=== PATIENT | female | born 1965 | race Caucasian/White ===

== ENCOUNTER 2024-03-12 02:15 | Emergency (ER) | payer MEDICARE, MEDICAID, SELFPAY ==
[2024-03-12 02:16] VITALS: BP 167/73; PULSE 72; RESP 18; TEMP 36.8; O2SAT 94; BMI 30.4
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
[2024-03-12 02:56] LABS: Absolute Lymphocyte Count 2.54 X10^3/uL (0.83-4.51); Absolute Neutrophil Count 6.8 X10^3/uL (2.0-7.7); Basophil# 0.08 X10^3/uL; Basophil% 0.8 % (0-1); Eosinophil# 0.24 X10^3/uL; Eosinophils% 2.3 % (0-5); Hematocrit 41.8 % (37-47); Hemoglobin 13.3 g/dL (12.0-15.0); Lymphocyte # 2.54 X10^3/ul (0.83-4.51); Lymphocyte % 24.4 % (19-41); Mean Corp Hgb Conc 31.8 g/dL (32-36); Mean Corpuscular Volume 84.8 fL (81-99); Mean Platelet Vol. 11.9 fl (6.2-12.0); Monocyte# 0.72 X10^3/uL; Monocyte% 6.9 % (0-10); NRBC Flagged by Analyzer 0 % (0-5); Neutrophil % 65.4 % (47-70); Platelet Count 270 K/mm3 (150-450); RBC Distribution Width CV 14.4 % (11.6-14.6); RBC Distribution Width SD 43.8 fl (35.1-43.9); Red Blood Count 4.93 M/mm3 (4.2-5.4); White Blood Count 10.4 K/mm3 (4.4-11.0)
[2024-03-12 03:15] LABS: Anion Gap 3 (5-15); BUN 18 mg/dL (7-18); BUN/Creat Ratio 15.7 RATIO (10-20); Calcium,Total 9.4 mg/dL (8.5-10.1); Chloride 106 mmol/L (98-107); Creatinine, Serum 1.15 mg/dL (0.55-1.02); EST Glomerular Filtration Rate 52 mL/min (>60); Est Glom Filt Rate - Afr Amer 63 mL/min (>60); Estimated Creatinine Clearance 61.59 ml/min; Glucose 129 mg/dL (74-106); Potassium 4.1 mmol/L (3.5-5.1); Sodium Level 140 mmol/L (136-145)
[2024-03-12 03:16] VITALS: BP 135/88; PULSE 66; RESP 16; O2SAT 98
[2024-03-12 03:18] LABS: Alcohol, Blood (Medical)-Serum < 3.0 mg/dL; Amphetamine Urine VISTA NEGATIVE (<1000 ng/mL); Barbiturate Urine VISTA NEGATIVE (< 200 ng/mL); Benzodiazepine Urine VISTA NEGATIVE (< 200 ng/mL); Cocaine Urine VISTA NEGATIVE (< 300 ng/mL); Ecstacy Urine VISTA NEGATIVE (< 500 ng/mL); Methadone Urine VISTA NEGATIVE (< 300 ng/mL); PCP Urine VISTA NEGATIVE (< 25 ng/mL); THC Urine VISTA POSITIVE (< 50 ng/mL); Vista UDS pH Range 7
--- NOTE | 2024-03-12 03:21 | ED.RN ---
CHART FAXED, CRISIS CALLED
--- NOTE | 2024-03-12 05:48 | ED.RN ---
[facility] CALLED, PT REFERR[facility] AND [facility]
--- NOTE | 2024-03-12 07:40 | ED.RN ---
Crisis called and pt has been accepted at [facility]. She will be going to [facility]. [phone] Ext [phone]
[2024-03-12 07:48] VITALS: BP 140/76; PULSE 82; RESP 16; TEMP 36.6; O2SAT 98
[2024-03-12] MEDS: Sertraline 100 MG Tablet PO (09:05)
[2024-03-12] MEDS: glipiZIDE 5 MG Tablet PO (09:05)
[2024-03-12] MEDS: Pantoprazole Sodium 40 MG Tablet PO (09:05)
[2024-03-12 09:16] LABS: Bedside Glucose 148 mg/dL (74-106)
[2024-03-12 11:08] VITALS: BP 140/76; PULSE 82; RESP 16; TEMP 36.6; O2SAT 98
== END 2024-03-12 10:15 ==
PROVIDERS: Emergency Provider Emergency Medicine; Visit Provider Emergency Medicine
DX: R45.851 Suicidal ideations (principal); G40.909 Epilepsy, unspecified, not intractable, without status epilepticus; F32.A Depression, unspecified; F41.9 Anxiety disorder, unspecified; Z87.820 Personal history of traumatic brain injury; Z79.899 Other long term (current) drug therapy
CPT/HCPCS: 80048; 80307; 82077; 82962; 85025; 99285